=== PATIENT | male | born 1965 | race African-American/Black ===

== ENCOUNTER 2021-08-20 19:20 | Emergency (ER) | payer MEDICAID ==
[~2021-08-20] VITALS: Ht 170.2 cm; Wt 75.0 kg
[2021-08-20] MEDS ORDERED: KETOROLAC 60MG/2ML VIAL IM ONE (20:15)
[2021-08-20] MEDS ORDERED: KETOROLAC 30MG/ML VIAL IM NR (21:44)
[2021-08-20 22:10] VITALS: BP 176/71
[2021-08-20] MEDS ORDERED: METO25TA6 PO (22:26)
[2021-08-20] MEDS ORDERED: IBUP-2029 MT (22:28)
== END 2021-08-20 23:19 | disposition home or self-care (01) ==
LOC: ER 19:20
DX: M54.59 Other low back pain (principal); I10 Essential (primary) hypertension
CPT/HCPCS: 93005; 96372; 99283; J1885

== ENCOUNTER 2021-10-20 11:23 | Emergency (ER) | payer MEDICAID ==
[~2021-10-20] VITALS: Ht 167.6 cm; Wt 81.0 kg
[~2021-10-20 11:23] MED LIST: IBUP-2029 MT; METO25TA6 PO
[2021-10-20] MEDS ORDERED: KETOROLAC 60MG/2ML VIAL IM ONE (12:45)
[2021-10-20] MEDS ORDERED: LORAZEPAM 0.5MG TABLET PO ONE (12:45)
[2021-10-20 13:12] VITALS: BP 164/66
[2021-10-20] MEDS ORDERED: METH-653 MT (13:13)
[2021-10-20] MEDS ORDERED: T3 PO (13:13)
== END 2021-10-20 13:37 | disposition home or self-care (01) ==
LOC: ER 12:15
DX: G89.29 Other chronic pain (principal); M54.59 Other low back pain; G47.09 Other insomnia; I10 Essential (primary) hypertension; I73.9 Peripheral vascular disease, unspecified
CPT/HCPCS: 96372; 99283; J1885

== ENCOUNTER 2022-04-07 05:18 | Emergency (ER) | payer MEDICAID ==
[~2022-04-07] VITALS: Ht 177.8 cm; Wt 86.0 kg
[~2022-04-07 05:18] MED LIST changes: +METH-653 MT; +T3 PO
[2022-04-07] MEDS ORDERED: ASPIRIN 81MG TABLET PO ONE (06:00)
[2022-04-07] MEDS ORDERED: NITROGLYCERIN 0.4MG TABLET SL SL PRN (06:00)
[2022-04-07] MEDS ORDERED: LABETALOL 5MG/ML SYR 20 MG/4 ML SYRINGE IV ONE (06:15)
[2022-04-07 06:30] LABS: BASOPHILS % 0.8 % (0.0-2.0); HEMATOCRIT. 48.2 % (42.0-52.0); HEMOGLOBIN. 16.3 g/dL (14.0-18.0); MEAN CORPUSCULAR VOLUME 82.7 fL (80.0-94.0); MEAN PLATELET VOLUME 8.3 fl (7.4-10.4); MONOCYTES % 11.4 % (2.0-8.0); NEUTROPHILS % 72.8 % (40.0-76.0); PLATELET 228 x1000/uL (130-400); RED BLOOD CELL COUNT 5.82 mill/uL (4.7-6.1)
[2022-04-07 06:58] LABS: CHLORIDE 107 mEq/L (98-107)
[2022-04-07] MEDS ORDERED: AMLODIPINE 5MG TABLET PO ONE (07:30)
[2022-04-07 10:44] VITALS: BP 176/79
== END 2022-04-07 10:50 | disposition home or self-care (01) ==
LOC: ER 05:18
DX: R07.89 Other chest pain (principal); I10 Essential (primary) hypertension; Z98.890 Other specified postprocedural states; Z79.899 Other long term (current) drug therapy
CPT/HCPCS: 36415; 71045; 80053; 83690; 83880; 84484; 85025; 93005; 99285; Z7610; 99291

== ENCOUNTER 2023-02-04 08:31 | Emergency (ER) | payer MEDICAID ==
[~2023-02-04] VITALS: Ht 175.3 cm; Wt 82.0 kg
[2023-02-04 08:33] VITALS: O2SAT 100
[2023-02-04] MEDS ORDERED: LISINOPRIL 10MG TABLET PO ONE (09:30)
[2023-02-04] MEDS ORDERED: PENICILLIN G BENZATHINE 2,400,000 UNITS/4ML SYR IM ONE (09:30)
[2023-02-04] MEDS ORDERED: DOXY100C5 MT (09:44)
[2023-02-04] MEDS ORDERED: DOXYCYCLINE HYCLATE 100MG CAPSULE PO NR (10:00)
[2023-02-04 10:16] VITALS: BP 178/98; PULSE 65; RESP 20; TEMP 98.5
== END 2023-02-04 10:17 | disposition home or self-care (01) ==
LOC: ER 08:45
DX: A53.9 Syphilis, unspecified (principal); I10 Essential (primary) hypertension
CPT/HCPCS: 99283; J0561